=== PATIENT | male | born 1995 | race Two or more races ===

== ENCOUNTER 2025-02-22 23:27 | Emergency (ER) | payer OTHER ==
[~2025-02-22] VITALS: Ht 167.6 cm; Wt 124.7 kg
[2025-02-22] MEDS ORDERED: KETOROLAC TROMETHAMINE 30 MG VIAL IU STA (23:55)
[2025-02-23] MEDS ORDERED: KETOROLAC TROMETHAMINE 30 MG VIAL ONE (00:12)
[2025-02-23] MEDS ORDERED: ORPHENADRINE CITRATE 100 MG TABLET PO STA (00:48)
[2025-02-23] MEDS ORDERED: CLONIDINE HCL 0.1 MG TABLET PO ONE (01:18)
== END 2025-02-23 03:25 | disposition home or self-care (01) ==
LOC: ER 23:27
DX: S86.111A Strain of other muscle(s) and tendon(s) of posterior muscle group at lower leg level, right leg, initial encounter (principal); X58.XXXA Exposure to other specified factors, initial encounter; Y93.89 Activity, other specified; Y92.89 Other specified places as the place of occurrence of the external cause; Y99.9 Unspecified external cause status; I10 Essential (primary) hypertension; Z87.09 Personal history of other diseases of the respiratory system